=== PATIENT | female | born 1955 | race African-American/Black ===

== ENCOUNTER 2017-02-08 20:02 | Inpatient (IN) | payer OTHER ==
[~2017-02-08] VITALS: Ht 165.1 cm; Wt 101.6 kg
[~2017-02-08 20:02] MED LIST: ATEN-176 PO; DOCU-138 PO; ISOS60TA PO; OMEP20CA10 PO; TRAM50TA73 PO; ZOLP5TAB2 PO
[2017-02-08] MEDS ORDERED: SODIUM CHLORIDE 0.9% 1,000 ML IV ONE (20:44)
[2017-02-08] MEDS ORDERED: HALOPERIDOL LACTATE 5MG/ML VIAL IM ONE (22:15)
[2017-02-08] MEDS ORDERED: LORAZEPAM 2MG/ML CPJ IM STA (23:47)
[2017-02-09] MEDS ORDERED: HALOPERIDOL LACTATE 5MG/ML VIAL IM ONE
[2017-02-09 00:32] LABS: BASOPHILS % 1.1 % (0.0-2.0); EOSINOPHILS % 1.3 % (0.0-5.0); HEMATOCRIT. 43.2 % (36.0-48.0); HEMOGLOBIN. 14.5 g/dL (12.0-16.0); LYMPHOCYTES % 14.4 % (20.0-50.0); MEAN CORPUSCULAR HEMOGLOBIN 26.7 pg (28.0-32.0); MEAN CORPUSCULAR VOLUME 79.9 fL (81.0-99.0); MEAN PLATELET VOLUME 9.4 fl (7.4-10.4); MONOCYTES % 10.9 % (2.0-8.0); NEUTROPHILS % 72.3 % (40.0-76.0); PLATELET 279 x1000/uL (130-400); RED BLOOD CELL COUNT 5.41 mill/uL (4.2-5.4); RED CELL DISTRIBUTION WIDTH 18.3 % (11.6-14.6)
[2017-02-09 00:34] LABS: CHLORIDE 94 mEq/L (98-107)
[2017-02-09 00:43] LABS: CARBON DIOXIDE 32 mEq/L (21-32)
[2017-02-09 00:45] LABS: AMMONIA 14 uMol/L (<32)
[2017-02-09 00:50] LABS: CREATINE KINASE 497 IU/L (26-192); ETHANOL BLOOD < 10 mg/dL
[2017-02-09] MEDS ORDERED: LACTATED RINGERS 1,000 ML IV STA (01:03)
[2017-02-09] MEDS ORDERED: KCL 20MEQ/100ML PREMIX 100 ML IV ONE (01:15)
[2017-02-09] MEDS ORDERED: MAGNESIUM 1 G PREMIX 100 ML IV ONE (01:15)
[2017-02-09 03:13] LABS: CLARITY URINE CLOUDY (CLEAR); COLOR URINE YELLOW (YELLOW); GLUCOSE URINE NEGATIVE (NEGATIVE); KETONES URINE TRACE (NEGATIVE); LEUKOCYTE ESTERASE URINE 1+ (NEGATIVE); NITRITE URINE NEGATIVE (NEGATIVE); OCCULT BLOOD URINE 1+ (NEGATIVE); PH URINE 5.5 (4.5-8.0); PROTEIN URINE 1+ (NEGATIVE); SPECIFIC GRAVITY URINE 1.019 (1.005-1.030)
[2017-02-09 04:21] LABS: *AMPHETAMINES SCREEN URINE NEGATIVE (NEGATIVE); *BARBITURATES SCREEN URINE NEGATIVE (NEGATIVE); *BENZODIAZEPINES SCREEN URINE NEGATIVE (NEGATIVE); *COCAINE SCREEN URINE NEGATIVE (NEGATIVE); CANNABINOID URINE SCREEN NEGATIVE (NEGATIVE); METHADONE URINE SCREEN NEGATIVE (NEGATIVE); OPIATES URINE SCREEN PRESUMTIVE POSITIVE (NEGATIVE); PHENCYCLIDINE URINE SCREEN NEGATIVE (NEGATIVE)
[2017-02-09 08:00] VITALS: BP_SYST 130; BP_SYST 90; BP_DIAS 60; BP_DIAS 78
[2017-02-09] MEDS ORDERED: SODIUM CHLORIDE 0.9% 1,000 ML IV SCH (09:00)
[2017-02-09 12:00] VITALS: BP 145/78
[2017-02-09] MEDS: SODIUM CHLORIDE 0.45% 1,000 ML IV SCH ×2 (13:54→18:59)
[2017-02-09 16:00] VITALS: BP 139/82
[2017-02-09 17:00] LABS: HEMOGLOBIN. 13.8 g/dL (12.0-16.0); MEAN CORPUSCULAR HEMOGLOBIN 26.6 pg (28.0-32.0); MEAN CORPUSCULAR VOLUME 79.3 fL (81.0-99.0); MEAN PLATELET VOLUME 9.5 fl (7.4-10.4); PLATELET 216 x1000/uL (130-400); RED BLOOD CELL COUNT 5.17 mill/uL (4.2-5.4); RED CELL DISTRIBUTION WIDTH 18.4 % (11.6-14.6)
[2017-02-09 17:16] LABS: CARBON DIOXIDE 29 mEq/L (21-32); CHLORIDE 96 mEq/L (98-107)
[2017-02-09 17:57] LABS: NUCLEATED RED BLOOD CELLS 1 /100 WBC; PLATELET ESTIMATE NORMAL
[2017-02-09 20:00] VITALS: BP 143/79
[2017-02-09] MEDS ORDERED: PAMIDRONATE DISODIUM 30 MG in SODIUM CHLORIDE 0.9% 500 ML IV NR (20:00)
[2017-02-09] MEDS ORDERED: POTASSIUM CHLORIDE INJ 40 MEQ in DEXT 5% WATER 250 ML IV NR (20:00)
[2017-02-09] MEDS ORDERED: IPRATROPIUM/ALBUTEROL 0.5-3(2.5)MG/3ML NEB INH PRN (22:00)
[2017-02-09] MEDS ORDERED: ACETAMINOPHEN 325MG TABLET PO PRN (22:00)
[2017-02-09] MEDS ORDERED: ONDANSETRON HCL 4MG/2ML VIAL IV PRN (22:00)
[2017-02-09] MEDS ORDERED: GUAIFENESIN 200MG/10ML SUGAR FREE UDC PO PRN (22:00)
[2017-02-09] MEDS ORDERED: DIPHENHYDRAMINE 50MG/ML VIAL IV PRN (22:00)
[2017-02-09] MEDS ORDERED: CLONIDINE 0.1MG TABLET PO PRN (22:00)
[2017-02-09] MEDS ORDERED: MAGNESIUM/ALUMINUM HYDROXIDE/SIMETHICONE 30ML UDC PO PRN (22:00)
[2017-02-09] MEDS ORDERED: NA PHOS,M-B/NA PHOS,DI-BA ENEMA 118ML PR PRN (22:00)
[2017-02-09] MEDS ORDERED: DOCUSATE SODIUM 100MG CAPSULE PO PRN (22:00)
[2017-02-09 22:48] LABS: CARBON DIOXIDE 29 mEq/L (21-32); CHLORIDE 97 mEq/L (98-107)
[2017-02-09] MEDS: SODIUM CHLORIDE 0.9% INJ 3ML FLUSH IVF SCH (22:53)
[2017-02-10] VITALS: BP 145/86
[2017-02-10] MEDS ORDERED: CEFTRIAXONE 1 G PREMIX 50 ML IV SCH
[2017-02-10 04:00] VITALS: BP 135/82
[2017-02-10 06:46] LABS: BASOPHILS % 0.4 % (0.0-2.0); EOSINOPHILS % 0.9 % (0.0-5.0); HEMATOCRIT. 43.1 % (36.0-48.0); HEMOGLOBIN. 14.5 g/dL (12.0-16.0); LYMPHOCYTES % 11.9 % (20.0-50.0); MEAN CORPUSCULAR VOLUME 80.3 fL (81.0-99.0); MEAN PLATELET VOLUME 9.3 fl (7.4-10.4); MONOCYTES % 7.6 % (2.0-8.0); NEUTROPHILS % 79.2 % (40.0-76.0); PLATELET 237 x1000/uL (130-400); RED BLOOD CELL COUNT 5.37 mill/uL (4.2-5.4); RED CELL DISTRIBUTION WIDTH 18.1 % (11.6-14.6)
[2017-02-10] MEDS ORDERED: ATENOLOL 50 MG TABLET PO SCH (07:30)
[2017-02-10 08:00] VITALS: BP 135/84
[2017-02-10 08:53] LABS: CHLORIDE 93 mEq/L (98-107)
[2017-02-10] MEDS: DOCUSATE SODIUM 100MG CAPSULE PO SCH (08:53)
[2017-02-10] MEDS: SODIUM CHLORIDE 0.45% 1,000 ML IV SCH ×2 (08:53→15:55)
[2017-02-10] MEDS: ISOSORBIDE MONONITRATE 60MG TABLET SR 24HR PO SCH (08:54)
[2017-02-10] MEDS: ATENOLOL 25MG TABLET PO SCH (08:55)
[2017-02-10] MEDS ORDERED: ENOXAPARIN 40MG/0.4ML SYR SUBCUT SCH (09:00)
[2017-02-10 09:02] LABS: CARBON DIOXIDE 35 mEq/L (21-32); HDL CHOLESTEROL 71 mg/dL (40-59); LDL CHOLESTEROL 80 mg/dL (5-100)
[2017-02-10 12:00] VITALS: BP 110/75
[2017-02-10] MEDS: SODIUM CHLORIDE 0.9% INJ 3ML FLUSH IVF SCH ×2 (15:55→21:53)
[2017-02-10 16:00] VITALS: BP_SYST 110
[2017-02-10 20:00] VITALS: BP 120/65
[2017-02-10 20:56] LABS: CHLORIDE 97 mEq/L (98-107)
[2017-02-10 21:00] LABS: AMMONIA 25 uMol/L (<32)
[2017-02-10 21:04] LABS: CARBON DIOXIDE 30 mEq/L (21-32)
[2017-02-10] MEDS ORDERED: POTASSIUM CHLORIDE 20MEQ TABLET SR PO NR (21:15)
[2017-02-11] VITALS (20 sets, daily range): BP systolic 71–134; BP diastolic 27–82
[2017-02-11] MEDS: SODIUM CHLORIDE 0.45% 1,000 ML IV SCH ×2 (02:21→12:51)
[2017-02-11] MEDS: SODIUM CHLORIDE 0.9% INJ 3ML FLUSH IVF SCH ×3 (05:21→22:40)
[2017-02-11 07:48] LABS: PHOSPHORUS 0.7 mg/dL (2.5-4.9)
[2017-02-11] MEDS ORDERED: LORAZEPAM 2MG/ML CPJ IM PRN (09:00)
[2017-02-11] MEDS: ATENOLOL 25MG TABLET PO SCH (09:00)
[2017-02-11] MEDS ORDERED: SODIUM PHOS,M-BASIC-D-BASIC 20 MM in DEXT 5% WATER 250 ML IV SCH (09:00)
[2017-02-11] MEDS ORDERED: LORAZEPAM 2MG/ML CPJ IV PRN (09:00)
[2017-02-11] MEDS ORDERED: ENOXAPARIN 30MG/0.3ML SYR SUBCUT SCH (09:00)
[2017-02-11 09:22] LABS: BASOPHILS % 0.6 % (0.0-2.0); EOSINOPHILS % 0.7 % (0.0-5.0); HEMATOCRIT. 36.5 % (36.0-48.0); LYMPHOCYTES % 11.6 % (20.0-50.0); MEAN CORPUSCULAR HEMOGLOBIN 26.4 pg (28.0-32.0); MEAN CORPUSCULAR VOLUME 80.2 fL (81.0-99.0); MEAN PLATELET VOLUME 9.2 fl (7.4-10.4); MONOCYTES % 7.9 % (2.0-8.0); NEUTROPHILS % 79.2 % (40.0-76.0); PLATELET 202 x1000/uL (130-400); RED BLOOD CELL COUNT 4.55 mill/uL (4.2-5.4); RED CELL DISTRIBUTION WIDTH 18.2 % (11.6-14.6)
[2017-02-11] MEDS: DOCUSATE SODIUM 100MG CAPSULE PO SCH (09:22)
[2017-02-11] MEDS: ISOSORBIDE MONONITRATE 60MG TABLET SR 24HR PO SCH (09:23)
[2017-02-11] MEDS ORDERED: MAGNESIUM 2 G PREMIX 50 ML IV SCH (10:00)
[2017-02-11] MEDS ORDERED: ETOMIDATE 2MG/ML 10ML VIAL IV ONE (10:48)
[2017-02-11] MEDS ORDERED: LIDOCAINE HCL/PF 1% 2ML VIAL ONE (11:59)
[2017-02-11 16:43] LABS: BG CARBOXYHEMOGLOBIN 0.3 % (0.5-1.5); BG DEOXYHEMOGLOBIN 5.8 % (0.0-5.0); BG FRACTION INSPIRED OXYGEN 28; BG HCO3 ACT 23.5 mmol/L (22.0-26.0); BG METHEMOGLOBIN 0.4 % (0.0-1.5); BG OXYGEN SATURATION 94.2 % (92.0-98.5); BG OXYHEMOGLOBIN 93.5 % (94.0-97.0); BG PCO2 30.2 mmHg (35.0-45.0); BG PH 7.508 (7.350-7.450); BG PO2 69.8 mmHg (75.0-100.0); BG SAMPLE SITE RIGHT BRACHIAL; BG TOTAL HEMOGLOBIN 11.3 g/dL (12.0-18.0); BG VENT MODE NASAL CANNULA
[2017-02-11 17:13] LABS: AMMONIA 11 uMol/L (<32)
[2017-02-11] MEDS: GABAPENTIN 100MG CAPSULE PO SCH (17:41)
[2017-02-11] MEDS: IPRATROPIUM/ALBUTEROL 0.5-3(2.5)MG/3ML NEB HHN SCH ×2 (20:42→23:55)
[2017-02-11] MEDS ORDERED: ALBUMIN HUMAN 25GM/100ML (25%) IV NR (21:53)
[2017-02-11 22:01] LABS: BG BASE EXCESS -12.3 mmol/L (-2.0-2.0); BG CARBOXYHEMOGLOBIN 0.3 % (0.5-1.5); BG DEOXYHEMOGLOBIN 1.4 % (0.0-5.0); BG FRACTION INSPIRED OXYGEN 100; BG HCO3 ACT 10.6 mmol/L (22.0-26.0); BG METHEMOGLOBIN 0.1 % (0.0-1.5); BG OXYGEN SATURATION 98.6 % (92.0-98.5); BG OXYHEMOGLOBIN 98.2 % (94.0-97.0); BG PCO2 18.6 mmHg (35.0-45.0); BG PH 7.373 (7.350-7.450); BG PO2 170.7 mmHg (75.0-100.0); BG SAMPLE SITE LEFT RADIAL; BG TOTAL HEMOGLOBIN 12.4 g/dL (12.0-18.0); BG VENT MODE MASK - NRB
[2017-02-11] MEDS ORDERED: DEXTROSE 50% WATER 50ML SYRINGE IV PRN ×2 (22:15)
[2017-02-11] MEDS ORDERED: DEXTROSE 50% WATER 50ML SYRINGE IV NR (22:15)
[2017-02-11] MEDS: MEROPENEM 500 MG in SODIUM CHLORIDE 0.9% 50 ML IV SCH (22:45)
[2017-02-11] MEDS ORDERED: NOREPINEPHRINE 4 MG in DEXT 5% WATER 246 ML IV PRN (22:45)
[2017-02-11 22:51] LABS: HEMATOCRIT. 29.6 % (36.0-48.0); HEMOGLOBIN. 9.7 g/dL (12.0-16.0); MEAN CORPUSCULAR HEMOGLOBIN 26.3 pg (28.0-32.0); MEAN CORPUSCULAR VOLUME 80.1 fL (81.0-99.0); MEAN PLATELET VOLUME 9.3 fl (7.4-10.4); PLATELET 190 x1000/uL (130-400); RED CELL DISTRIBUTION WIDTH 18.2 % (11.6-14.6)
[2017-02-11 23:01] LABS: CARBON DIOXIDE 14 mEq/L (21-32); CHLORIDE 102 mEq/L (98-107)
[2017-02-11 23:02] LABS: D-DIMER 4.5 mg/L FEU (<0.50); INR 1.2; PARTIAL THROMBOPLASTIN TIME 29.1 sec (24.0-34.0); PROTHROMBIN TIME 12.4 sec
[2017-02-11 23:07] LABS: PHOSPHORUS 2.6 mg/dL (2.5-4.9)
[2017-02-11 23:08] LABS: PLATELET ESTIMATE NORMAL; TROPONIN I 0.09 ng/mL (0.00-0.04)
[2017-02-11] MEDS ORDERED: VANCOMYCIN 1 G PREMIX 200 ML IV SCH (23:30)
[2017-02-11] MEDS ORDERED: METHYLPREDNISOLONE SOD SUCC 125 MG/2 ML VIAL IV NR (23:40)
[2017-02-12] VITALS (97 sets, daily range): BP systolic 48–144; BP diastolic 16–77
[2017-02-12] MEDS ORDERED: DEXT 10% WATER 1,000 ML IV NR (00:30)
[2017-02-12] MEDS: SODIUM BICARBONATE 150 MEQ in DEXTROSE 5% WATER 1,000 ML IV SCH ×2 (00:30→19:20)
[2017-02-12] MEDS ORDERED: POTASSIUM CHLORIDE INJ 40 MEQ in DEXT 5% WATER 500 ML IV NR (01:00)
[2017-02-12 02:45] LABS: CREATININE URINE RANDOM 69.6 mg/dL
[2017-02-12] MEDS ORDERED: PROPOFOL 10MG/ML 100ML 100 ML IV PRN ×2 (02:45→07:30)
[2017-02-12 03:05] LABS: HEMATOCRIT 31.6 % (36.0-48.0); HEMOGLOBIN 10.3 g/dL (12.0-16.0)
[2017-02-12] MEDS: IPRATROPIUM/ALBUTEROL 0.5-3(2.5)MG/3ML NEB HHN SCH ×6 (04:09→23:53)
[2017-02-12] MEDS: SODIUM CHLORIDE 0.9% INJ 3ML FLUSH IVF SCH ×3 (05:09→21:29)
[2017-02-12] MEDS: NOREPINEPHRINE 16 MG in DEXT 5% WATER 234 ML IV PRN ×2 (05:10→19:20)
[2017-02-12 05:36] LABS: HEMATOCRIT. 27.1 % (36.0-48.0); HEMOGLOBIN. 9.2 g/dL (12.0-16.0); MEAN CORPUSCULAR HEMOGLOBIN 26.9 pg (28.0-32.0); MEAN PLATELET VOLUME 9.8 fl (7.4-10.4); PLATELET 167 x1000/uL (130-400); RED BLOOD CELL COUNT 3.43 mill/uL (4.2-5.4)
[2017-02-12] MEDS ORDERED: ALBUMIN HUMAN 25GM/100ML (25%) IV ONE (05:45)
[2017-02-12] MEDS ORDERED: SODIUM CHLORIDE 0.9% 1000ML BAG (SEPSIS BOLUS) IV ONE (05:45)
[2017-02-12 05:46] LABS: BG BASE EXCESS -5.3 mmol/L (-2.0-2.0); BG CARBOXYHEMOGLOBIN 0.3 % (0.5-1.5); BG DEOXYHEMOGLOBIN 1.4 % (0.0-5.0); BG FRACTION INSPIRED OXYGEN 60; BG HCO3 ACT 16.1 mmol/L (22.0-26.0); BG METHEMOGLOBIN 0.2 % (0.0-1.5); BG OXYGEN SATURATION 98.6 % (92.0-98.5); BG OXYHEMOGLOBIN 98.1 % (94.0-97.0); BG PH 7.503 (7.350-7.450); BG PO2 168.3 mmHg (75.0-100.0); BG SAMPLE SITE RIGHT RADIAL; BG TIDAL VOLUME(mL) 600 mL; BG TOTAL HEMOGLOBIN 10.8 g/dL (12.0-18.0); BG VENT MODE VENT - A/C; BG VENT RATE 20 set
[2017-02-12 05:58] LABS: PHOSPHORUS 1.4 mg/dL (2.5-4.9)
[2017-02-12] MEDS ORDERED: BLOOD SUGAR DIAGNOSTIC STRIP TEST SCH ×2 (06:30)
[2017-02-12] MEDS ORDERED: METRONIDAZOLE 500 MG PREMIX 100 ML IV SCH (07:00)
[2017-02-12] MEDS: BLOOD SUGAR DIAGNOSTIC STRIP TEST SCH ×4 (08:12→20:40)
[2017-02-12 08:13] LABS: NUCLEATED RED BLOOD CELLS 1 /100 WBC; PLATELET ESTIMATE NORMAL
[2017-02-12 08:54] LABS: T4 FREE 1.3 ng/dL (0.76-1.46)
[2017-02-12] MEDS ORDERED: ENOXAPARIN 40MG/0.4ML SYR SUBCUT SCH (09:00)
[2017-02-12] MEDS: DOCUSATE SODIUM 100MG CAPSULE PO SCH (09:00)
[2017-02-12] MEDS ORDERED: GABAPENTIN 100MG CAPSULE PO SCH (09:00)
[2017-02-12] MEDS: GABAPENTIN 100MG CAPSULE PO SCH ×3 (09:24→17:16)
[2017-02-12] MEDS: MEROPENEM 500 MG in SODIUM CHLORIDE 0.9% 50 ML IV SCH ×2 (09:24→21:31)
[2017-02-12] MEDS: FOLIC ACID 1MG TABLET NG SCH (09:28)
[2017-02-12] MEDS: MULTIVITAMINS,THER W-MINERALS TABLET NG SCH (09:28)
[2017-02-12] MEDS: THIAMINE HCL 100MG TABLET NG SCH (09:28)
[2017-02-12] MEDS: PANTOPRAZOLE SODIUM 40 MG/VIAL IV SCH (09:28)
[2017-02-12] MEDS ORDERED: WATER IV NR (11:00)
[2017-02-12] MEDS ORDERED: DEXT IV NR (11:00)
[2017-02-12] MEDS ORDERED: SODIUM PHOS M BASIC D BASIC IV NR (11:00)
[2017-02-12 11:25] LABS: *AMPHETAMINES SCREEN URINE NEGATIVE (NEGATIVE); *BARBITURATES SCREEN URINE NEGATIVE (NEGATIVE); *BENZODIAZEPINES SCREEN URINE NEGATIVE (NEGATIVE); *COCAINE SCREEN URINE NEGATIVE (NEGATIVE); CANNABINOID URINE SCREEN NEGATIVE (NEGATIVE); METHADONE URINE SCREEN NEGATIVE (NEGATIVE); OPIATES URINE SCREEN PRESUMTIVE POSITIVE (NEGATIVE); PHENCYCLIDINE URINE SCREEN NEGATIVE (NEGATIVE)
[2017-02-12 13:07] LABS: *CREATININE RANDOM URINE 108.5 mg/dL (Not Estab.); MICROALBUMIN RANDOM URINE 493.8 ug/mL (Not Estab.); MICROALBUMIN/CREATININE RATIO 455.1 mg/g creat (0.0-30.0)
[2017-02-12] MEDS ORDERED: VANCOMYCIN 500 MG PREMIX 100 ML IV NR (14:00)
[2017-02-12 16:49] LABS: CREATINE KINASE MB FRACTION 5.8 ng/mL (0.5-3.6); TROPONIN I 0.08 ng/mL (0.00-0.04)
[2017-02-12] MEDS: BUDESONIDE 0.5MG/2ML NEB HHN SCH (19:47)
[2017-02-12] MEDS ORDERED: SODIUM BICARBONATE 150 MEQ in SODIUM CHLORIDE 0.9% 1,000 ML IV SCH ×3 (22:30)
[2017-02-13] VITALS (94 sets, daily range): BP systolic 69–150; BP diastolic 40–91
[2017-02-13] MEDS: ACETAMINOPHEN 650MG/20.3ML UDC GT PRN ×2 (02:35→14:48)
[2017-02-13 04:04] LABS: CREATINE KINASE MB FRACTION 3.8 ng/mL (0.5-3.6); TROPONIN I 0.04 ng/mL (0.00-0.04)
[2017-02-13] MEDS: IPRATROPIUM/ALBUTEROL 0.5-3(2.5)MG/3ML NEB HHN SCH ×5 (04:09→20:37)
[2017-02-13] MEDS ORDERED: ALBUMIN HUMAN 25GM/100ML (25%) IV ONE (04:45)
[2017-02-13] MEDS: BLOOD SUGAR DIAGNOSTIC STRIP TEST SCH ×6 (04:54→20:00)
[2017-02-13 05:40] LABS: HEMATOCRIT. 27.1 % (36.0-48.0); HEMOGLOBIN. 9.4 g/dL (12.0-16.0); MEAN CORPUSCULAR HEMOGLOBIN 26.7 pg (28.0-32.0); MEAN CORPUSCULAR VOLUME 77.1 fL (81.0-99.0); PLATELET 174 x1000/uL (130-400); RED BLOOD CELL COUNT 3.51 mill/uL (4.2-5.4); RED CELL DISTRIBUTION WIDTH 18.2 % (11.6-14.6)
[2017-02-13 05:45] LABS: CARBON DIOXIDE 26 mEq/L (21-32); CHLORIDE 95 mEq/L (98-107); CREATINE KINASE 426 IU/L (26-192); CREATINE KINASE MB FRACTION 2.6 ng/mL (0.5-3.6); TROPONIN I 0.05 ng/mL (0.00-0.04)
[2017-02-13] MEDS: SODIUM CHLORIDE 0.9% INJ 3ML FLUSH IVF SCH ×3 (06:07→22:36)
[2017-02-13] MEDS: NOREPINEPHRINE 16 MG in DEXT 5% WATER 234 ML IV PRN (06:45)
[2017-02-13 07:14] LABS: PLATELET ESTIMATE NORMAL
[2017-02-13 07:40] LABS: INR 1.2; PROTHROMBIN TIME 12.6 sec
[2017-02-13] MEDS: BUDESONIDE 0.5MG/2ML NEB HHN SCH ×2 (08:10→20:38)
[2017-02-13 08:29] LABS: BG BASE EXCESS 3.3 mmol/L (-2.0-2.0); BG CARBOXYHEMOGLOBIN 0.3 % (0.5-1.5); BG DEOXYHEMOGLOBIN 7.5 % (0.0-5.0); BG FRACTION INSPIRED OXYGEN 35; BG HCO3 ACT 25.2 mmol/L (22.0-26.0); BG METHEMOGLOBIN 0.4 % (0.0-1.5); BG OXYGEN SATURATION 92.4 % (92.0-98.5); BG OXYHEMOGLOBIN 91.8 % (94.0-97.0); BG PH 7.572 (7.350-7.450); BG PO2 63.6 mmHg (75.0-100.0); BG SAMPLE SITE RIGHT RADIAL; BG TIDAL VOLUME(mL) 550 mL; BG TOTAL HEMOGLOBIN 8.1 g/dL (12.0-18.0); BG VENT MODE VENT - A/C; BG VENT RATE 14 set
[2017-02-13] MEDS ORDERED: CEFEPIME 1,000 MG in DEXTROSE 5% WATER 50 ML IV SCH (08:30)
[2017-02-13] MEDS: DOCUSATE SODIUM 100MG CAPSULE PO SCH (09:00)
[2017-02-13] MEDS: MULTIVITAMINS,THER W-MINERALS TABLET NG SCH (09:08)
[2017-02-13] MEDS: FOLIC ACID 1MG TABLET NG SCH (09:08)
[2017-02-13] MEDS: PANTOPRAZOLE SODIUM 40 MG/VIAL IV SCH (09:08)
[2017-02-13] MEDS: THIAMINE HCL 100MG TABLET NG SCH (09:08)
[2017-02-13] MEDS ORDERED: POTASSIUM CHLORIDE 20MEQ TABLET SR PO NR (09:45)
[2017-02-13] MEDS ORDERED: SODIUM BICARBONATE 4% (2.4MEQ) 5ML VIAL IV ONE (11:19)
[2017-02-13] MEDS ORDERED: LIDOCAINE HCL 1% 20ML VIAL (Pyxis) INJ ONE (11:19)
[2017-02-13] MEDS: SODIUM CHLORIDE 0.9% 1,000 ML IV SCH (13:09)
[2017-02-13] MEDS ORDERED: PROPOFOL 10MG/ML 100ML 100 ML IV PRN (14:00)
[2017-02-13] MEDS ORDERED: MICAFUNGIN 100 MG in SODIUM CHLORIDE 0.9% 100 ML IV SCH (14:15)
[2017-02-13] MEDS ORDERED: FLUCONAZOLE 800 MG/400 ML IV NR (16:00)
[2017-02-13] MEDS ORDERED: FLUCONAZOLE 400MG/200ML BAG 200 ML IV NR ×2 (16:00→18:00)
[2017-02-13] MEDS: VANCOMYCIN 500 MG PREMIX 100 ML IV SCH (17:04)
[2017-02-13] MEDS: MEROPENEM 1,000 MG in SODIUM CHLORIDE 0.9% 100 ML IV SCH (21:00)
[2017-02-13] MEDS ORDERED: SODIUM BICARBONATE 150 MEQ in SODIUM CHLORIDE 0.45% 1,000 ML IV SCH ×3 (23:00)
[2017-02-13] MEDS: PHENYLEPHRINE 40 MG in DEXT 5% WATER 246 ML IV PRN (23:05)
[2017-02-14] VITALS (98 sets, daily range): BP systolic 60–168; BP diastolic 26–114
[2017-02-14] MEDS: IPRATROPIUM/ALBUTEROL 0.5-3(2.5)MG/3ML NEB HHN SCH ×6 (00:29→20:18)
[2017-02-14] MEDS: SODIUM CHLORIDE 0.9% 1,000 ML IV SCH (01:31)
[2017-02-14] MEDS: BLOOD SUGAR DIAGNOSTIC STRIP TEST SCH ×6 (04:00→20:39)
[2017-02-14 04:42] LABS: BASOPHILS % 0.4 % (0.0-2.0); EOSINOPHILS % 0.1 % (0.0-5.0); HEMATOCRIT. 23.1 % (36.0-48.0); HEMOGLOBIN. 8.1 g/dL (12.0-16.0); LYMPHOCYTES % 18.3 % (20.0-50.0); MEAN CORPUSCULAR HEMOGLOBIN 27.1 pg (28.0-32.0); MEAN CORPUSCULAR VOLUME 77.4 fL (81.0-99.0); MEAN PLATELET VOLUME 9.6 fl (7.4-10.4); MONOCYTES % 7.2 % (2.0-8.0); PLATELET 171 x1000/uL (130-400); RED BLOOD CELL COUNT 2.98 mill/uL (4.2-5.4); RED CELL DISTRIBUTION WIDTH 18.4 % (11.6-14.6)
[2017-02-14] MEDS: SODIUM CHLORIDE 0.9% INJ 3ML FLUSH IVF SCH ×3 (06:25→22:00)
[2017-02-14] MEDS ORDERED: MORPHINE SULFATE 2 MG/ML CPJ (NOT FOR IM USE) IV PRN (07:00)
[2017-02-14] MEDS ORDERED: KCL 20MEQ/100ML PREMIX 100 ML IV ONE (07:15)
[2017-02-14] MEDS ORDERED: LACTULOSE 20G/30ML UDC PO NR (07:30)
[2017-02-14] MEDS: NOREPINEPHRINE 16 MG in DEXT 5% WATER 234 ML IV PRN ×2 (08:00→20:56)
[2017-02-14] MEDS: BUDESONIDE 0.5MG/2ML NEB HHN SCH ×2 (08:28→20:18)
[2017-02-14] MEDS: PANTOPRAZOLE SODIUM 40 MG/VIAL IV SCH (08:58)
[2017-02-14] MEDS ORDERED: POTASSIUM CHLORIDE INJ 40 MEQ in DEXT 5% WATER 250 ML IV NR (09:00)
[2017-02-14] MEDS: THIAMINE HCL 100MG TABLET NG SCH (09:01)
[2017-02-14] MEDS: FOLIC ACID 1MG TABLET NG SCH (09:01)
[2017-02-14] MEDS: MULTIVITAMINS,THER W-MINERALS TABLET NG SCH (09:01)
[2017-02-14] MEDS: FENTANYL CITRATE/PF 500 MCG in SODIUM CHLORIDE 0.9% 40 ML IV PRN ×2 (10:03→17:30)
[2017-02-14] MEDS: MEROPENEM 1,000 MG in SODIUM CHLORIDE 0.9% 100 ML IV SCH ×2 (10:03→20:49)
[2017-02-14] MEDS ORDERED: LIDOCAINE HCL 1% 20ML VIAL (Pyxis) INJ INFIL NR (12:00)
[2017-02-14] MEDS: MIDAZOLAM HCL 100 MG in DEXT 5% WATER 80 ML IV PRN ×2 (12:00→13:12)
[2017-02-14 12:06] LABS: HEMATOCRIT 24.1 % (36.0-48.0); HEMOGLOBIN 8.4 g/dL (12.0-16.0)
[2017-02-14] MEDS: PHENYLEPHRINE 40 MG in DEXT 5% WATER 246 ML IV PRN (12:30)
[2017-02-14] MEDS ORDERED: AMIODARONE HCL 900 MG in DEXT 5% WATER 500 ML IV PRN (12:30)
[2017-02-14] MEDS ORDERED: POTASSIUM PHOS,M-BASIC-D-BASIC 10 MMOL in DEXT 5% WATER 246.6667 ML IV NR (13:00)
[2017-02-14 13:26] LABS: 25-HYDROXY VITAMIN D3 6.3 ng/mL (.)
[2017-02-14] MEDS: METOCLOPRAMIDE HCL 10MG/2ML VIAL IV SCH ×2 (13:40→19:43)
[2017-02-14] MEDS: ACETAMINOPHEN 650MG SUPP PR PRN (13:41)
[2017-02-14 13:47] LABS: BG BASE EXCESS 2.6 mmol/L (-2.0-2.0); BG CARBOXYHEMOGLOBIN 0.1 % (0.5-1.5); BG DEOXYHEMOGLOBIN 1.3 % (0.0-5.0); BG FRACTION INSPIRED OXYGEN 70; BG HCO3 ACT 25.2 mmol/L (22.0-26.0); BG METHEMOGLOBIN 0.3 % (0.0-1.5); BG OXYGEN SATURATION 98.7 % (92.0-98.5); BG OXYHEMOGLOBIN 98.3 % (94.0-97.0); BG PCO2 30.6 mmHg (35.0-45.0); BG PH 7.533 (7.350-7.450); BG PO2 176.9 mmHg (75.0-100.0); BG SAMPLE SITE LEFT RADIAL; BG TIDAL VOLUME(mL) 550 mL; BG TOTAL HEMOGLOBIN 8.3 g/dL (12.0-18.0); BG VENT MODE VENT - A/C; BG VENT RATE 14 set
[2017-02-14] MEDS: FLUCONAZOLE 400MG/200ML BAG 200 ML IV SCH (16:00)
[2017-02-14] MEDS: VANCOMYCIN 500 MG PREMIX 100 ML IV SCH (16:46)
[2017-02-14 18:46] LABS: HEMATOCRIT 22.8 % (36.0-48.0); HEMOGLOBIN 7.7 g/dL (12.0-16.0)
[2017-02-14] MEDS ORDERED: LACTULOSE 20G/30ML UDC PO PRN (21:00)
[2017-02-15] VITALS (100 sets, daily range): BP systolic 81–185; BP diastolic 38–102
[2017-02-15] MEDS: IPRATROPIUM/ALBUTEROL 0.5-3(2.5)MG/3ML NEB HHN SCH ×7 (00:16→23:51)
[2017-02-15 00:44] LABS: HEMATOCRIT 23.7 % (36.0-48.0); HEMOGLOBIN 8.2 g/dL (12.0-16.0)
[2017-02-15] MEDS: SODIUM CHLORIDE 0.9% 1,000 ML IV SCH ×3 (03:00→17:18)
[2017-02-15] MEDS: BLOOD SUGAR DIAGNOSTIC STRIP TEST SCH ×6 (04:58→20:32)
[2017-02-15 05:22] LABS: HEMOGLOBIN. 7.8 g/dL (12.0-16.0); MEAN CORPUSCULAR HEMOGLOBIN 26.4 pg (28.0-32.0); MEAN CORPUSCULAR VOLUME 77.8 fL (81.0-99.0); MEAN PLATELET VOLUME 9.2 fl (7.4-10.4); PLATELET 184 x1000/uL (130-400); RED BLOOD CELL COUNT 2.96 mill/uL (4.2-5.4); RED CELL DISTRIBUTION WIDTH 18.2 % (11.6-14.6)
[2017-02-15] MEDS: SODIUM CHLORIDE 0.9% INJ 3ML FLUSH IVF SCH ×3 (05:32→21:41)
[2017-02-15] MEDS: METOCLOPRAMIDE HCL 10MG/2ML VIAL IV SCH ×4 (05:32→17:20)
[2017-02-15] MEDS: FENTANYL CITRATE/PF 500 MCG in SODIUM CHLORIDE 0.9% 40 ML IV PRN (06:06)
[2017-02-15] MEDS: MIDAZOLAM HCL 100 MG in DEXT 5% WATER 80 ML IV PRN (06:06)
[2017-02-15 06:31] LABS: PHOSPHORUS 2.6 mg/dL (2.5-4.9)
[2017-02-15] MEDS: NOREPINEPHRINE 16 MG in DEXT 5% WATER 234 ML IV PRN (07:00)
[2017-02-15 07:42] LABS: PLATELET ESTIMATE NORMAL
[2017-02-15 07:53] LABS: BG BASE EXCESS 1.6 mmol/L (-2.0-2.0); BG CARBOXYHEMOGLOBIN 0.3 % (0.5-1.5); BG DEOXYHEMOGLOBIN 1.7 % (0.0-5.0); BG FRACTION INSPIRED OXYGEN 50; BG HCO3 ACT 24.6 mmol/L (22.0-26.0); BG METHEMOGLOBIN 0.3 % (0.0-1.5); BG OXYGEN SATURATION 98.3 % (92.0-98.5); BG OXYHEMOGLOBIN 97.7 % (94.0-97.0); BG PCO2 32.9 mmHg (35.0-45.0); BG PH 7.491 (7.350-7.450); BG PO2 137.3 mmHg (75.0-100.0); BG SAMPLE SITE RIGHT RADIAL; BG TIDAL VOLUME(mL) 550 mL; BG TOTAL HEMOGLOBIN 10.4 g/dL (12.0-18.0); BG VENT MODE VENT - A/C; BG VENT RATE 14 set
[2017-02-15] MEDS: BUDESONIDE 0.5MG/2ML NEB HHN SCH (07:55)
[2017-02-15] MEDS: MEROPENEM 1,000 MG in SODIUM CHLORIDE 0.9% 100 ML IV SCH ×2 (08:59→20:35)
[2017-02-15] MEDS: PANTOPRAZOLE SODIUM 40 MG/VIAL IV SCH (08:59)
[2017-02-15] MEDS: MULTIVITAMINS,THER W-MINERALS TABLET NG SCH (08:59)
[2017-02-15] MEDS: THIAMINE HCL 100MG TABLET NG SCH (08:59)
[2017-02-15] MEDS: FOLIC ACID 1MG TABLET NG SCH (08:59)
[2017-02-15] MEDS ORDERED: POTASSIUM CHLORIDE INJ 40 MEQ in DEXT 5% WATER 250 ML IV NR (10:00)
[2017-02-15] MEDS: VANCOMYCIN 750 MG PREMIX 150 ML IV SCH (14:14)
[2017-02-15 16:05] LABS: HEMATOCRIT 26.3 % (36.0-48.0); HEMOGLOBIN 8.9 g/dL (12.0-16.0)
[2017-02-15] MEDS: FLUCONAZOLE 400MG/200ML BAG 200 ML IV SCH (16:13)
[2017-02-15 18:13] LABS: HEMATOCRIT 25.3 % (36.0-48.0); HEMOGLOBIN 8.9 g/dL (12.0-16.0)
[2017-02-16] VITALS (97 sets, daily range): BP systolic 88–132; BP diastolic 45–100
[2017-02-16 01:03] LABS: HEMATOCRIT 23.6 % (36.0-48.0)
[2017-02-16] MEDS: METOCLOPRAMIDE HCL 10MG/2ML VIAL IV SCH ×4 (01:14→18:29)
[2017-02-16] MEDS: BLOOD SUGAR DIAGNOSTIC STRIP TEST SCH ×5 (04:00→20:17)
[2017-02-16] MEDS: IPRATROPIUM/ALBUTEROL 0.5-3(2.5)MG/3ML NEB HHN SCH ×5 (04:02→20:19)
[2017-02-16 04:48] LABS: HEMOGLOBIN. 8.3 g/dL (12.0-16.0); MEAN CORPUSCULAR HEMOGLOBIN 27.2 pg (28.0-32.0); MEAN CORPUSCULAR VOLUME 78.8 fL (81.0-99.0); MEAN PLATELET VOLUME 9.2 fl (7.4-10.4); PLATELET 201 x1000/uL (130-400); RED BLOOD CELL COUNT 3.04 mill/uL (4.2-5.4); RED CELL DISTRIBUTION WIDTH 18.6 % (11.6-14.6)
[2017-02-16] MEDS: SODIUM CHLORIDE 0.9% INJ 3ML FLUSH IVF SCH ×3 (05:07→21:04)
[2017-02-16 05:16] LABS: CARBON DIOXIDE 25 mEq/L (21-32); CHLORIDE 113 mEq/L (98-107); PHOSPHORUS 1.2 mg/dL (2.5-4.9)
[2017-02-16] MEDS: SODIUM CHLORIDE 0.9% 1,000 ML IV SCH ×2 (06:40→21:34)
[2017-02-16] MEDS: NOREPINEPHRINE 16 MG in DEXT 5% WATER 234 ML IV PRN (06:49)
[2017-02-16 07:06] LABS: PLATELET ESTIMATE NORMAL
[2017-02-16 07:49] LABS: BG BASE EXCESS 0.3 mmol/L (-2.0-2.0); BG CARBOXYHEMOGLOBIN 0.3 % (0.5-1.5); BG DEOXYHEMOGLOBIN 2.7 % (0.0-5.0); BG FRACTION INSPIRED OXYGEN 40; BG HCO3 ACT 23.1 mmol/L (22.0-26.0); BG METHEMOGLOBIN 0.6 % (0.0-1.5); BG OXYGEN SATURATION 97.3 % (92.0-98.5); BG OXYHEMOGLOBIN 96.4 % (94.0-97.0); BG PCO2 29.7 mmHg (35.0-45.0); BG PH 7.508 (7.350-7.450); BG PO2 100.8 mmHg (75.0-100.0); BG SAMPLE SITE RIGHT RADIAL; BG TIDAL VOLUME(mL) 550 mL; BG TOTAL HEMOGLOBIN 7.9 g/dL (12.0-18.0); BG VENT MODE VENT - A/C; BG VENT RATE 12 set
[2017-02-16] MEDS: PANTOPRAZOLE SODIUM 40 MG/VIAL IV SCH (09:36)
[2017-02-16] MEDS: ACETAMINOPHEN 650MG/20.3ML UDC GT PRN ×2 (09:36→19:59)
[2017-02-16] MEDS: FOLIC ACID 1MG TABLET NG SCH (09:36)
[2017-02-16] MEDS: MULTIVITAMINS,THER W-MINERALS TABLET NG SCH (09:36)
[2017-02-16] MEDS: THIAMINE HCL 100MG TABLET NG SCH (09:36)
[2017-02-16] MEDS: MEROPENEM 1,000 MG in SODIUM CHLORIDE 0.9% 100 ML IV SCH ×3 (09:39→21:03)
[2017-02-16] MEDS: VANCOMYCIN 750 MG PREMIX 150 ML IV SCH (11:18)
[2017-02-16] MEDS ORDERED: FLUCONAZOLE 800 MG/400 ML IV SCH (12:45)
[2017-02-16 12:54] LABS: HEMATOCRIT 23.9 % (36.0-48.0); HEMOGLOBIN 8.3 g/dL (12.0-16.0)
[2017-02-16] MEDS ORDERED: DEXTROSE 50% WATER 50ML SYRINGE IV PRN (13:30)
[2017-02-16] MEDS ORDERED: MAGNESIUM 2 G PREMIX 50 ML IV NR (14:00)
[2017-02-16] MEDS ORDERED: FLUCONAZOLE 400MG/200ML BAG 200 ML IV SCH ×2 (14:00→16:00)
[2017-02-16] MEDS ORDERED: POTASSIUM PHOS,M-BASIC-D-BASIC 20 MMOL in DEXT 5% WATER 243.3333 ML IV SCH (15:00)
[2017-02-16] MEDS: FENTANYL CITRATE/PF 500 MCG in SODIUM CHLORIDE 0.9% 40 ML IV PRN (15:01)
[2017-02-16] MEDS: MIDAZOLAM HCL 100 MG in DEXT 5% WATER 80 ML IV PRN (16:34)
[2017-02-16] MEDS: INSULIN LISPRO 100 UNITS/ML SUBCUT SCH ×2 (17:00→21:03)
[2017-02-16 18:24] LABS: HEMATOCRIT 22.9 % (36.0-48.0); HEMOGLOBIN 7.8 g/dL (12.0-16.0)
[2017-02-17] VITALS (101 sets, daily range): BP systolic 87–132; BP diastolic 45–86
[2017-02-17] MEDS: IPRATROPIUM/ALBUTEROL 0.5-3(2.5)MG/3ML NEB HHN SCH ×6 (00:05→20:32)
[2017-02-17] MEDS: METOCLOPRAMIDE HCL 10MG/2ML VIAL IV SCH ×4 (00:17→18:31)
[2017-02-17] MEDS: SODIUM CHLORIDE 0.9% INJ 3ML FLUSH IVF SCH ×3 (05:06→21:05)
[2017-02-17] MEDS: MEROPENEM 1,000 MG in SODIUM CHLORIDE 0.9% 100 ML IV SCH ×3 (05:09→21:51)
[2017-02-17] MEDS: NOREPINEPHRINE 16 MG in DEXT 5% WATER 234 ML IV PRN (05:11)
[2017-02-17 05:35] LABS: HEMATOCRIT. 24.8 % (36.0-48.0); HEMOGLOBIN. 8.4 g/dL (12.0-16.0); MEAN CORPUSCULAR HEMOGLOBIN 27.4 pg (28.0-32.0); MEAN CORPUSCULAR VOLUME 80.5 fL (81.0-99.0); MEAN PLATELET VOLUME 9.2 fl (7.4-10.4); PLATELET 233 x1000/uL (130-400); RED BLOOD CELL COUNT 3.08 mill/uL (4.2-5.4); RED CELL DISTRIBUTION WIDTH 18.6 % (11.6-14.6)
[2017-02-17] MEDS: BLOOD SUGAR DIAGNOSTIC STRIP TEST SCH ×4 (05:38→21:05)
[2017-02-17 06:01] LABS: CARBON DIOXIDE 24 mEq/L (21-32); CHLORIDE 113 mEq/L (98-107); PHOSPHORUS 2.2 mg/dL (2.5-4.9)
[2017-02-17] MEDS: INSULIN LISPRO 100 UNITS/ML SUBCUT SCH ×4 (06:27→21:00)
[2017-02-17 07:58] LABS: PLATELET ESTIMATE NORMAL
[2017-02-17 08:13] LABS: BG BASE EXCESS -1.1 mmol/L (-2.0-2.0); BG CARBOXYHEMOGLOBIN 0.3 % (0.5-1.5); BG DEOXYHEMOGLOBIN 1.9 % (0.0-5.0); BG FRACTION INSPIRED OXYGEN 40; BG HCO3 ACT 21.3 mmol/L (22.0-26.0); BG METHEMOGLOBIN 0.2 % (0.0-1.5); BG OXYGEN SATURATION 98.1 % (92.0-98.5); BG OXYHEMOGLOBIN 97.6 % (94.0-97.0); BG PCO2 27.1 mmHg (35.0-45.0); BG PH 7.513 (7.350-7.450); BG PO2 119.6 mmHg (75.0-100.0); BG SAMPLE SITE RIGHT RADIAL; BG TIDAL VOLUME(mL) 550 mL; BG TOTAL HEMOGLOBIN 8.7 g/dL (12.0-18.0); BG VENT MODE VENT - A/C; BG VENT RATE 12 set
[2017-02-17] MEDS: MULTIVITAMINS,THER W-MINERALS TABLET NG SCH (10:09)
[2017-02-17] MEDS: THIAMINE HCL 100MG TABLET NG SCH (10:09)
[2017-02-17] MEDS: PANTOPRAZOLE SODIUM 40 MG/VIAL IV SCH (10:09)
[2017-02-17] MEDS: FOLIC ACID 1MG TABLET NG SCH (10:09)
[2017-02-17] MEDS: LINEZOLID 600 MG PREMIX 300 ML IV SCH ×2 (10:25→23:07)
[2017-02-17] MEDS: SODIUM CHLORIDE 0.9% 1,000 ML IV SCH (10:29)
[2017-02-17 12:09] LABS: HEMATOCRIT 23.1 % (36.0-48.0); HEMOGLOBIN 7.9 g/dL (12.0-16.0)
[2017-02-17] MEDS: MICAFUNGIN 100 MG in SODIUM CHLORIDE 0.9% 100 ML IV SCH (12:42)
[2017-02-17] MEDS: CALCITRIOL 0.25MCG CAPSULE PO SCH (13:48)
[2017-02-17] MEDS ORDERED: MAGNESIUM 2 G PREMIX 50 ML IV NR (14:00)
[2017-02-17] MEDS ORDERED: POTASSIUM PHOS,M-BASIC-D-BASIC 20 MMOL in DEXT 5% WATER 243.3333 ML IV NR (14:00)
[2017-02-17] MEDS: ACETAMINOPHEN 650MG/20.3ML UDC GT PRN ×2 (15:03→22:23)
[2017-02-17] MEDS: FENTANYL CITRATE/PF 500 MCG in SODIUM CHLORIDE 0.9% 40 ML IV PRN (18:32)
[2017-02-18] VITALS (95 sets, daily range): BP systolic 79–129; BP diastolic 43–80
[2017-02-18 00:16] LABS: HEMATOCRIT 27.1 % (36.0-48.0); HEMOGLOBIN 9.1 g/dL (12.0-16.0)
[2017-02-18] MEDS: IPRATROPIUM/ALBUTEROL 0.5-3(2.5)MG/3ML NEB HHN SCH ×7 (00:16→23:51)
[2017-02-18] MEDS: METOCLOPRAMIDE HCL 10MG/2ML VIAL IV SCH ×4 (00:27→18:11)
[2017-02-18] MEDS: NOREPINEPHRINE 16 MG in DEXT 5% WATER 234 ML IV PRN (00:58)
[2017-02-18 04:53] LABS: HEMATOCRIT. 27.9 % (36.0-48.0); HEMOGLOBIN. 9.5 g/dL (12.0-16.0); MEAN CORPUSCULAR HEMOGLOBIN 27.1 pg (28.0-32.0); MEAN CORPUSCULAR VOLUME 79.8 fL (81.0-99.0); MEAN PLATELET VOLUME 9.2 fl (7.4-10.4); PLATELET 264 x1000/uL (130-400); RED BLOOD CELL COUNT 3.49 mill/uL (4.2-5.4); RED CELL DISTRIBUTION WIDTH 17.5 % (11.6-14.6)
[2017-02-18] MEDS: SODIUM CHLORIDE 0.9% INJ 3ML FLUSH IVF SCH ×3 (05:15→21:34)
[2017-02-18] MEDS: MEROPENEM 1,000 MG in SODIUM CHLORIDE 0.9% 100 ML IV SCH ×3 (05:17→23:09)
[2017-02-18 05:20] LABS: CARBON DIOXIDE 22 mEq/L (21-32); CHLORIDE 113 mEq/L (98-107); PHOSPHORUS 1.9 mg/dL (2.5-4.9)
[2017-02-18] MEDS: BLOOD SUGAR DIAGNOSTIC STRIP TEST SCH ×3 (05:39→18:08)
[2017-02-18] MEDS: INSULIN LISPRO 100 UNITS/ML SUBCUT SCH ×3 (05:59→18:00)
[2017-02-18] MEDS: MIDAZOLAM HCL 100 MG in DEXT 5% WATER 80 ML IV PRN (06:05)
[2017-02-18 07:11] LABS: BG BASE EXCESS -2.4 mmol/L (-2.0-2.0); BG CARBOXYHEMOGLOBIN 0.2 % (0.5-1.5); BG DEOXYHEMOGLOBIN 2.3 % (0.0-5.0); BG METHEMOGLOBIN 0.3 % (0.0-1.5); BG OXYGEN SATURATION 97.7 % (92.0-98.5); BG OXYHEMOGLOBIN 97.2 % (94.0-97.0); BG PCO2 26.7 mmHg (35.0-45.0); BG PH 7.493 (7.350-7.450); BG PO2 106.1 mmHg (75.0-100.0); BG SAMPLE SITE RIGHT RADIAL; BG TIDAL VOLUME(mL) 550 mL; BG TOTAL HEMOGLOBIN 9.8 g/dL (12.0-18.0); BG VENT MODE VENT - A/C; BG VENT RATE 12 set
[2017-02-18 08:07] LABS: HEPATITIS B SURFACE ANTIGEN REACTIVE PEND CONFIR
[2017-02-18] MEDS: PANTOPRAZOLE SODIUM 40 MG/VIAL IV SCH ×2 (08:32→20:23)
[2017-02-18] MEDS: FOLIC ACID 1MG TABLET NG SCH (08:33)
[2017-02-18] MEDS: CALCITRIOL 0.25MCG CAPSULE PO SCH (08:33)
[2017-02-18] MEDS: MULTIVITAMINS,THER W-MINERALS TABLET NG SCH (08:33)
[2017-02-18] MEDS: THIAMINE HCL 100MG TABLET NG SCH (08:33)
[2017-02-18] MEDS: LINEZOLID 600 MG PREMIX 300 ML IV SCH ×2 (10:26→23:09)
[2017-02-18] MEDS ORDERED: MAGNESIUM SULFATE 3 GM in DEXT 5% WATER 96 ML IV NR (11:00)
[2017-02-18] MEDS ORDERED: POTASSIUM PHOS,M-BASIC-D-BASIC 15 MMOL in DEXT 5% WATER 245 ML IV NR (11:00)
[2017-02-18] MEDS: MICAFUNGIN 100 MG in SODIUM CHLORIDE 0.9% 100 ML IV SCH (11:25)
[2017-02-18 11:50] LABS: AMMONIA < 10 uMol/L (<32)
[2017-02-18] MEDS: FENTANYL CITRATE/PF 500 MCG in SODIUM CHLORIDE 0.9% 40 ML IV PRN (12:01)
[2017-02-18] MEDS: SODIUM CHLORIDE 0.9% 1,000 ML IV SCH (12:01)
[2017-02-18] MEDS: CALCITRIOL 1MCG/ML AMP IV SCH (12:04)
[2017-02-18 15:46] LABS: ATYPICAL LYMPHOCYTES 1; NUCLEATED RED BLOOD CELLS 2 /100 WBC
[2017-02-18 15:47] LABS: PLATELET ESTIMATE NORMAL
[2017-02-18] MEDS: ACETAMINOPHEN 650MG/20.3ML UDC GT PRN (23:31)
[2017-02-19] VITALS (100 sets, daily range): BP systolic 83–152; BP diastolic 31–81
[2017-02-19] MEDS: INSULIN LISPRO 100 UNITS/ML SUBCUT SCH ×4 (00:38→18:34)
[2017-02-19] MEDS: BLOOD SUGAR DIAGNOSTIC STRIP TEST SCH ×4 (00:38→18:31)
[2017-02-19] MEDS: METOCLOPRAMIDE HCL 10MG/2ML VIAL IV SCH ×4 (00:52→18:34)
[2017-02-19] MEDS: IPRATROPIUM/ALBUTEROL 0.5-3(2.5)MG/3ML NEB HHN SCH ×5 (04:05→20:23)
[2017-02-19 06:11] LABS: EOSINOPHILS % 1.6 % (0.0-5.0); HEMATOCRIT. 25.8 % (36.0-48.0); HEMOGLOBIN. 8.8 g/dL (12.0-16.0); LYMPHOCYTES % 7.2 % (20.0-50.0); MEAN CORPUSCULAR HEMOGLOBIN 27.4 pg (28.0-32.0); MEAN CORPUSCULAR VOLUME 80.3 fL (81.0-99.0); MEAN PLATELET VOLUME 10.2 fl (7.4-10.4); MONOCYTES % 3.9 % (2.0-8.0); NEUTROPHILS % 86.3 % (40.0-76.0); PLATELET 229 x1000/uL (130-400); RED BLOOD CELL COUNT 3.21 mill/uL (4.2-5.4); RED CELL DISTRIBUTION WIDTH 18.2 % (11.6-14.6)
[2017-02-19] MEDS: SODIUM CHLORIDE 0.9% INJ 3ML FLUSH IVF SCH ×3 (06:43→21:13)
[2017-02-19] MEDS: MEROPENEM 1,000 MG in SODIUM CHLORIDE 0.9% 100 ML IV SCH ×3 (06:45→21:02)
[2017-02-19 06:48] LABS: CHLORIDE 112 mEq/L (98-107)
[2017-02-19 07:10] LABS: CARBON DIOXIDE 19 mEq/L (21-32); PHOSPHORUS 2.1 mg/dL (2.5-4.9); PREALBUMIN < 3.0 mg/dL (20.0-40.0)
[2017-02-19 07:53] LABS: BG BASE EXCESS -2.8 mmol/L (-2.0-2.0); BG CARBOXYHEMOGLOBIN 0.3 % (0.5-1.5); BG DEOXYHEMOGLOBIN 2.8 % (0.0-5.0); BG FRACTION INSPIRED OXYGEN 40; BG METHEMOGLOBIN 0.5 % (0.0-1.5); BG OXYGEN SATURATION 97.2 % (92.0-98.5); BG OXYHEMOGLOBIN 96.4 % (94.0-97.0); BG PCO2 23.7 mmHg (35.0-45.0); BG PH 7.523 (7.350-7.450); BG PO2 100.7 mmHg (75.0-100.0); BG SAMPLE SITE RIGHT RADIAL; BG TIDAL VOLUME(mL) 550 mL; BG VENT MODE VENT - A/C; BG VENT RATE 12 set
[2017-02-19] MEDS: SODIUM CHLORIDE 0.9% 1,000 ML IV SCH ×2 (08:28→14:40)
[2017-02-19] MEDS: THIAMINE HCL 100MG TABLET NG SCH (08:36)
[2017-02-19] MEDS: PANTOPRAZOLE SODIUM 40 MG/VIAL IV SCH ×2 (08:36→21:02)
[2017-02-19] MEDS: FOLIC ACID 1MG TABLET NG SCH (08:36)
[2017-02-19] MEDS: MULTIVITAMINS,THER W-MINERALS TABLET NG SCH (08:36)
[2017-02-19] MEDS: LINEZOLID 600 MG PREMIX 300 ML IV SCH ×2 (09:48→21:02)
[2017-02-19] MEDS: FENTANYL CITRATE/PF 500 MCG in SODIUM CHLORIDE 0.9% 40 ML IV PRN (09:58)
[2017-02-19] MEDS ORDERED: POTASSIUM PHOS,M-BASIC-D-BASIC 30 MMOL in DEXT 5% WATER 500 ML IV NR (10:30)
[2017-02-19] MEDS: MICAFUNGIN 100 MG in SODIUM CHLORIDE 0.9% 100 ML IV SCH (12:22)
[2017-02-20] VITALS (100 sets, daily range): BP systolic 65–157; BP diastolic 34–98
[2017-02-20] MEDS: METOCLOPRAMIDE HCL 10MG/2ML VIAL IV SCH ×4 (01:07→18:21)
[2017-02-20] MEDS: INSULIN LISPRO 100 UNITS/ML SUBCUT SCH ×4 (01:08→18:00)
[2017-02-20] MEDS: SODIUM CHLORIDE 0.9% 1,000 ML IV SCH ×2 (04:00→18:21)
[2017-02-20] MEDS: IPRATROPIUM/ALBUTEROL 0.5-3(2.5)MG/3ML NEB HHN SCH ×7 (04:27→23:50)
[2017-02-20] MEDS: NOREPINEPHRINE 16 MG in DEXT 5% WATER 234 ML IV PRN (04:30)
[2017-02-20] MEDS: MIDAZOLAM HCL 50 MG in DEXTROSE 5% WATER 40 ML IV PRN ×3 (04:31→21:21)
[2017-02-20] MEDS: FENTANYL CITRATE/PF 500 MCG in SODIUM CHLORIDE 0.9% 40 ML IV PRN ×2 (04:32→16:41)
[2017-02-20 05:15] LABS: BASOPHILS % 0.9 % (0.0-2.0); EOSINOPHILS % 1.4 % (0.0-5.0); HEMATOCRIT. 23.9 % (36.0-48.0); HEMOGLOBIN. 8.1 g/dL (12.0-16.0); LYMPHOCYTES % 10.4 % (20.0-50.0); MEAN CORPUSCULAR HEMOGLOBIN 27.4 pg (28.0-32.0); MEAN CORPUSCULAR VOLUME 80.4 fL (81.0-99.0); MEAN PLATELET VOLUME 9.5 fl (7.4-10.4); MONOCYTES % 4.3 % (2.0-8.0); PLATELET 323 x1000/uL (130-400); RED BLOOD CELL COUNT 2.97 mill/uL (4.2-5.4); RED CELL DISTRIBUTION WIDTH 18.8 % (11.6-14.6)
[2017-02-20 05:20] LABS: CHLORIDE 109 mEq/L (98-107)
[2017-02-20] MEDS: SODIUM CHLORIDE 0.9% INJ 3ML FLUSH IVF SCH ×3 (05:29→22:04)
[2017-02-20] MEDS: BLOOD SUGAR DIAGNOSTIC STRIP TEST SCH ×5 (05:29→23:47)
[2017-02-20] MEDS: MEROPENEM 1,000 MG in SODIUM CHLORIDE 0.9% 100 ML IV SCH ×3 (05:33→21:31)
[2017-02-20 05:36] LABS: CARBON DIOXIDE 21 mEq/L (21-32); PHOSPHORUS 2.4 mg/dL (2.5-4.9)
[2017-02-20] MEDS ORDERED: SIMETHICONE 40 MG/0.6 ML 30ML ONE (06:44)
[2017-02-20] MEDS ORDERED: SODIUM CHLORIDE 0.9% 10ML VIAL ONE (06:44)
[2017-02-20 07:19] LABS: BG BASE EXCESS -3.4 mmol/L (-2.0-2.0); BG CARBOXYHEMOGLOBIN 0.2 % (0.5-1.5); BG DEOXYHEMOGLOBIN 2.6 % (0.0-5.0); BG HCO3 ACT 19.1 mmol/L (22.0-26.0); BG METHEMOGLOBIN 0.2 % (0.0-1.5); BG OXYGEN SATURATION 97.4 % (92.0-98.5); BG PCO2 25.9 mmHg (35.0-45.0); BG PH 7.485 (7.350-7.450); BG PO2 105.3 mmHg (75.0-100.0); BG SAMPLE SITE RIGHT RADIAL; BG TIDAL VOLUME(mL) 550 mL; BG TOTAL HEMOGLOBIN 9.6 g/dL (12.0-18.0); BG VENT MODE VENT - A/C; BG VENT RATE 12 set
[2017-02-20] MEDS ORDERED: SODIUM CHLORIDE 0.9% 500 ML IV SCH (08:30)
[2017-02-20] MEDS: PANTOPRAZOLE SODIUM 40 MG/VIAL IV SCH ×3 (08:44→22:08)
[2017-02-20] MEDS: MULTIVITAMINS,THER W-MINERALS TABLET NG SCH ×2 (08:44→08:58)
[2017-02-20] MEDS: FOLIC ACID 1MG TABLET NG SCH ×2 (08:44→08:57)
[2017-02-20] MEDS: THIAMINE HCL 100MG TABLET NG SCH ×2 (08:44→08:58)
[2017-02-20] MEDS: CALCITRIOL 1MCG/ML AMP IV SCH (08:47)
[2017-02-20] MEDS: LINEZOLID 600 MG PREMIX 300 ML IV SCH ×2 (10:18→22:10)
[2017-02-20] MEDS ORDERED: MAGNESIUM 4 G PREMIX 100 ML IV SCH (12:30)
[2017-02-20] MEDS ORDERED: POTASSIUM PHOS,M-BASIC-D-BASIC 20 MMOL in DEXT 5% WATER 250 ML IV SCH (12:30)
[2017-02-20] MEDS: MICAFUNGIN 100 MG in SODIUM CHLORIDE 0.9% 100 ML IV SCH (12:30)
[2017-02-20] MEDS: ACETAMINOPHEN 650MG SUPP PR PRN ×2 (12:41→22:10)
[2017-02-20] MEDS ORDERED: MIDAZOLAM HCL 5 MG/5 ML VIAL ONE (15:50)
[2017-02-20] MEDS ORDERED: FENTANYL CITRATE/PF 50MCG/ML 2ML VIAL ONE (15:50)
[2017-02-20] MEDS: TOTAL PARENTERAL NUTRITION 1,000 ML IV SCH (22:09)
[2017-02-21] VITALS (96 sets, daily range): BP systolic 64–146; BP diastolic 24–82
[2017-02-21] MEDS: INSULIN LISPRO (HIGH DOSE) 100 UNITS/ML SUBCUT SCH ×4 (00:06→17:51)
[2017-02-21] MEDS: METOCLOPRAMIDE HCL 10MG/2ML VIAL IV SCH ×4 (00:06→17:54)
[2017-02-21] MEDS: IPRATROPIUM/ALBUTEROL 0.5-3(2.5)MG/3ML NEB HHN SCH ×6 (04:08→23:55)
[2017-02-21] MEDS: FENTANYL CITRATE/PF 500 MCG in SODIUM CHLORIDE 0.9% 40 ML IV PRN ×4 (04:13→22:23)
[2017-02-21 04:40] LABS: BASOPHILS % 1.3 % (0.0-2.0); EOSINOPHILS % 2.7 % (0.0-5.0); HEMOGLOBIN. 8.1 g/dL (12.0-16.0); LYMPHOCYTES % 9.5 % (20.0-50.0); MEAN CORPUSCULAR HEMOGLOBIN 27.3 pg (28.0-32.0); MEAN CORPUSCULAR VOLUME 80.8 fL (81.0-99.0); MONOCYTES % 6.1 % (2.0-8.0); NEUTROPHILS % 80.4 % (40.0-76.0); PLATELET 340 x1000/uL (130-400); RED BLOOD CELL COUNT 2.97 mill/uL (4.2-5.4); RED CELL DISTRIBUTION WIDTH 19.2 % (11.6-14.6)
[2017-02-21 05:07] LABS: CARBON DIOXIDE 23 mEq/L (21-32); CHLORIDE 111 mEq/L (98-107); PHOSPHORUS 2.5 mg/dL (2.5-4.9)
[2017-02-21] MEDS: BLOOD SUGAR DIAGNOSTIC STRIP TEST SCH ×3 (06:02→17:51)
[2017-02-21] MEDS: SODIUM CHLORIDE 0.9% INJ 3ML FLUSH IVF SCH ×3 (06:02→21:05)
[2017-02-21] MEDS: MEROPENEM 1,000 MG in SODIUM CHLORIDE 0.9% 100 ML IV SCH ×3 (06:14→21:03)
[2017-02-21] MEDS: MIDAZOLAM HCL 50 MG in DEXTROSE 5% WATER 40 ML IV PRN (06:45)
[2017-02-21 07:44] LABS: BG BASE EXCESS -3.7 mmol/L (-2.0-2.0); BG CARBOXYHEMOGLOBIN 0.5 % (0.5-1.5); BG FRACTION INSPIRED OXYGEN 40; BG HCO3 ACT 19.8 mmol/L (22.0-26.0); BG METHEMOGLOBIN 0.2 % (0.0-1.5); BG OXYHEMOGLOBIN 94.3 % (94.0-97.0); BG PH 7.438 (7.350-7.450); BG PO2 82.1 mmHg (75.0-100.0); BG SAMPLE SITE RIGHT RADIAL; BG TIDAL VOLUME(mL) 550 mL; BG TOTAL HEMOGLOBIN 8.2 g/dL (12.0-18.0); BG VENT MODE VENT - A/C; BG VENT RATE 12 set
[2017-02-21] MEDS ORDERED: FAT EMULSIONS 500 ML IV SCH (09:00)
[2017-02-21] MEDS: MULTIVITAMINS,THER W-MINERALS TABLET NG SCH (09:00)
[2017-02-21] MEDS: THIAMINE HCL 100MG TABLET NG SCH (09:00)
[2017-02-21] MEDS: FOLIC ACID 1MG TABLET NG SCH (09:00)
[2017-02-21] MEDS: NOREPINEPHRINE 16 MG in DEXT 5% WATER 234 ML IV PRN (09:09)
[2017-02-21] MEDS: PANTOPRAZOLE SODIUM 40 MG/VIAL IV SCH ×2 (09:09→21:02)
[2017-02-21] MEDS: LINEZOLID 600 MG PREMIX 300 ML IV SCH ×2 (09:12→21:04)
[2017-02-21] MEDS ORDERED: TOTAL PARENTERAL NUTRITION 1,000 ML IV SCH (09:30)
[2017-02-21 10:09] LABS: HBSAG CONFIRMATION Positive (.); HBSAG SCREEN Confirm. indicated (Negative)
[2017-02-21] MEDS: TOTAL PARENTERAL NUTRITION 1,000 ML IV SCH ×2 (10:20→21:02)
[2017-02-21] MEDS: MICAFUNGIN 100 MG in SODIUM CHLORIDE 0.9% 100 ML IV SCH (12:04)
[2017-02-22] VITALS (95 sets, daily range): BP systolic 52–151; BP diastolic 27–97
[2017-02-22] MEDS: METOCLOPRAMIDE HCL 10MG/2ML VIAL IV SCH ×4 (00:05→17:18)
[2017-02-22] MEDS: INSULIN LISPRO (HIGH DOSE) 100 UNITS/ML SUBCUT SCH ×4 (00:06→17:18)
[2017-02-22] MEDS: IPRATROPIUM/ALBUTEROL 0.5-3(2.5)MG/3ML NEB HHN SCH ×5 (04:30→20:15)
[2017-02-22] MEDS: MEROPENEM 1,000 MG in SODIUM CHLORIDE 0.9% 100 ML IV SCH ×3 (05:11→22:07)
[2017-02-22 05:30] LABS: CARBON DIOXIDE 22 mEq/L (21-32); CHLORIDE 108 mEq/L (98-107)
[2017-02-22 05:33] LABS: PHOSPHORUS 1.9 mg/dL (2.5-4.9)
[2017-02-22] MEDS: SODIUM CHLORIDE 0.9% INJ 3ML FLUSH IVF SCH ×3 (05:52→22:00)
[2017-02-22] MEDS: FENTANYL CITRATE/PF 500 MCG in SODIUM CHLORIDE 0.9% 40 ML IV PRN ×3 (06:06→19:01)
[2017-02-22] MEDS: BLOOD SUGAR DIAGNOSTIC STRIP TEST SCH ×4 (06:13→17:18)
[2017-02-22 07:17] LABS: BG BASE EXCESS 0.9 mmol/L (-2.0-2.0); BG CARBOXYHEMOGLOBIN 0.9 % (0.5-1.5); BG DEOXYHEMOGLOBIN 2.2 % (0.0-5.0); BG METHEMOGLOBIN 0.3 % (0.0-1.5); BG OXYGEN SATURATION 97.8 % (92.0-98.5); BG OXYHEMOGLOBIN 96.6 % (94.0-97.0); BG PCO2 31.5 mmHg (35.0-45.0); BG PO2 102.9 mmHg (75.0-100.0); BG SAMPLE SITE RIGHT RADIAL; BG TIDAL VOLUME(mL) 550 mL; BG VENT MODE VENT - A/C; BG VENT RATE 12 set
[2017-02-22 07:44] LABS: BASOPHILS % 1.5 % (0.0-2.0); EOSINOPHILS % 4.7 % (0.0-5.0); HEMATOCRIT. 21.4 % (36.0-48.0); HEMOGLOBIN. 7.3 g/dL (12.0-16.0); LYMPHOCYTES % 14.1 % (20.0-50.0); MEAN CORPUSCULAR HEMOGLOBIN 27.5 pg (28.0-32.0); MEAN CORPUSCULAR VOLUME 80.6 fL (81.0-99.0); MEAN PLATELET VOLUME 8.9 fl (7.4-10.4); MONOCYTES % 8.4 % (2.0-8.0); NEUTROPHILS % 71.3 % (40.0-76.0); PLATELET 346 x1000/uL (130-400); RED BLOOD CELL COUNT 2.65 mill/uL (4.2-5.4); RED CELL DISTRIBUTION WIDTH 18.8 % (11.6-14.6)
[2017-02-22] MEDS: MULTIVITAMINS,THER W-MINERALS TABLET NG SCH ×2 (09:00→09:27)
[2017-02-22] MEDS: FOLIC ACID 1MG TABLET NG SCH ×2 (09:00→09:27)
[2017-02-22] MEDS: THIAMINE HCL 100MG TABLET NG SCH ×2 (09:00→09:27)
[2017-02-22] MEDS: PANTOPRAZOLE SODIUM 40 MG/VIAL IV SCH ×2 (09:26→20:40)
[2017-02-22] MEDS: ACETAMINOPHEN 650MG SUPP PR PRN ×2 (09:27→19:02)
[2017-02-22] MEDS: LINEZOLID 600 MG PREMIX 300 ML IV SCH ×2 (09:28→23:05)
[2017-02-22] MEDS: TOTAL PARENTERAL NUTRITION 1,000 ML IV SCH ×2 (09:30→22:07)
[2017-02-22] MEDS: CALCITRIOL 1MCG/ML AMP IV SCH (09:31)
[2017-02-22] MEDS: MICAFUNGIN 100 MG in SODIUM CHLORIDE 0.9% 100 ML IV SCH (11:16)
[2017-02-22] MEDS: NOREPINEPHRINE 16 MG in DEXT 5% WATER 234 ML IV PRN (12:57)
[2017-02-23] VITALS (100 sets, daily range): BP systolic 79–138; BP diastolic 33–79
[2017-02-23] MEDS: BLOOD SUGAR DIAGNOSTIC STRIP TEST SCH ×4 (00:13→18:49)
[2017-02-23] MEDS: IPRATROPIUM/ALBUTEROL 0.5-3(2.5)MG/3ML NEB HHN SCH ×6 (00:21→21:04)
[2017-02-23] MEDS: INSULIN LISPRO (HIGH DOSE) 100 UNITS/ML SUBCUT SCH ×4 (00:25→18:51)
[2017-02-23] MEDS: METOCLOPRAMIDE HCL 10MG/2ML VIAL IV SCH ×4 (00:26→18:49)
[2017-02-23] MEDS: FENTANYL CITRATE/PF 500 MCG in SODIUM CHLORIDE 0.9% 40 ML IV PRN ×3 (01:05→21:28)
[2017-02-23] MEDS: MIDAZOLAM HCL 50 MG in DEXTROSE 5% WATER 40 ML IV PRN ×2 (02:06→21:29)
[2017-02-23 05:19] LABS: BASOPHILS % 2.7 % (0.0-2.0); EOSINOPHILS % 4.3 % (0.0-5.0); HEMATOCRIT. 23.2 % (36.0-48.0); HEMOGLOBIN. 7.9 g/dL (12.0-16.0); LYMPHOCYTES % 20.9 % (20.0-50.0); MEAN CORPUSCULAR HEMOGLOBIN 27.6 pg (28.0-32.0); MEAN CORPUSCULAR VOLUME 81.2 fL (81.0-99.0); MEAN PLATELET VOLUME 8.7 fl (7.4-10.4); MONOCYTES % 8.9 % (2.0-8.0); NEUTROPHILS % 63.2 % (40.0-76.0); PLATELET 266 x1000/uL (130-400); RED BLOOD CELL COUNT 2.85 mill/uL (4.2-5.4); RED CELL DISTRIBUTION WIDTH 18.5 % (11.6-14.6)
[2017-02-23 05:36] LABS: CARBON DIOXIDE 22 mEq/L (21-32); CHLORIDE 108 mEq/L (98-107); PHOSPHORUS 1.9 mg/dL (2.5-4.9)
[2017-02-23] MEDS: SODIUM CHLORIDE 0.9% INJ 3ML FLUSH IVF SCH ×3 (05:44→22:07)
[2017-02-23] MEDS: MEROPENEM 1,000 MG in SODIUM CHLORIDE 0.9% 100 ML IV SCH ×3 (06:36→22:17)
[2017-02-23 07:12] LABS: BG BASE EXCESS 1.1 mmol/L (-2.0-2.0); BG CARBOXYHEMOGLOBIN 0.4 % (0.5-1.5); BG DEOXYHEMOGLOBIN 2.5 % (0.0-5.0); BG HCO3 ACT 24.1 mmol/L (22.0-26.0); BG METHEMOGLOBIN 0.3 % (0.0-1.5); BG OXYGEN SATURATION 97.5 % (92.0-98.5); BG OXYHEMOGLOBIN 96.8 % (94.0-97.0); BG PCO2 31.3 mmHg (35.0-45.0); BG PH 7.504 (7.350-7.450); BG PO2 101.8 mmHg (75.0-100.0); BG SAMPLE SITE RIGHT RADIAL; BG TIDAL VOLUME(mL) 550 mL; BG TOTAL HEMOGLOBIN 7.7 g/dL (12.0-18.0); BG VENT MODE VENT - A/C; BG VENT RATE 12 set
[2017-02-23] MEDS ORDERED: MAGNESIUM 2 G PREMIX 50 ML IV SCH (08:00)
[2017-02-23] MEDS: MULTIVITAMINS,THER W-MINERALS TABLET NG SCH (08:05)
[2017-02-23] MEDS: THIAMINE HCL 100MG TABLET NG SCH (08:05)
[2017-02-23] MEDS: FOLIC ACID 1MG TABLET NG SCH (08:05)
[2017-02-23] MEDS: PANTOPRAZOLE SODIUM 40 MG/VIAL IV SCH ×2 (08:23→20:03)
[2017-02-23] MEDS: LINEZOLID 600 MG PREMIX 300 ML IV SCH ×2 (10:08→22:40)
[2017-02-23] MEDS: TOTAL PARENTERAL NUTRITION 1,000 ML IV SCH (10:20)
[2017-02-23] MEDS: MICAFUNGIN 100 MG in SODIUM CHLORIDE 0.9% 100 ML IV SCH (11:13)
[2017-02-23] MEDS: ACETAMINOPHEN 650MG SUPP PR PRN (11:50)
[2017-02-23] MEDS ORDERED: TOTAL PARENTERAL NUTRITION 1,000 ML IV SCH (21:00)
[2017-02-24] VITALS (79 sets, daily range): BP systolic 58–168; BP diastolic 33–122
[2017-02-24] MEDS: BLOOD SUGAR DIAGNOSTIC STRIP TEST SCH ×3 (00:32→12:00)
[2017-02-24] MEDS: METOCLOPRAMIDE HCL 10MG/2ML VIAL IV SCH ×3 (00:40→12:00)
[2017-02-24] MEDS: INSULIN LISPRO (HIGH DOSE) 100 UNITS/ML SUBCUT SCH ×3 (00:41→12:00)
[2017-02-24] MEDS: IPRATROPIUM/ALBUTEROL 0.5-3(2.5)MG/3ML NEB HHN SCH ×3 (00:49→09:03)
[2017-02-24] MEDS: NOREPINEPHRINE 16 MG in DEXT 5% WATER 234 ML IV PRN (05:08)
[2017-02-24 05:26] LABS: BASOPHILS % 3.6 % (0.0-2.0); EOSINOPHILS % 5.6 % (0.0-5.0); HEMATOCRIT. 26.5 % (36.0-48.0); LYMPHOCYTES % 19.3 % (20.0-50.0); MEAN CORPUSCULAR HEMOGLOBIN 27.2 pg (28.0-32.0); MEAN CORPUSCULAR VOLUME 80.5 fL (81.0-99.0); MEAN PLATELET VOLUME 8.9 fl (7.4-10.4); NEUTROPHILS % 59.5 % (40.0-76.0); PLATELET 327 x1000/uL (130-400); RED BLOOD CELL COUNT 3.29 mill/uL (4.2-5.4); RED CELL DISTRIBUTION WIDTH 18.4 % (11.6-14.6)
[2017-02-24 05:28] LABS: CARBON DIOXIDE 26 mEq/L (21-32); CHLORIDE 105 mEq/L (98-107); PHOSPHORUS 2.4 mg/dL (2.5-4.9)
[2017-02-24] MEDS: SODIUM CHLORIDE 0.9% INJ 3ML FLUSH IVF SCH ×2 (05:28→14:00)
[2017-02-24 05:33] LABS: INR 1.1; PARTIAL THROMBOPLASTIN TIME 33.7 sec (24.0-34.0); PROTHROMBIN TIME 11.7 sec
[2017-02-24] MEDS: MEROPENEM 1,000 MG in SODIUM CHLORIDE 0.9% 100 ML IV SCH (06:48)
[2017-02-24 07:42] LABS: PREALBUMIN 3.5 mg/dL (20.0-40.0)
[2017-02-24] MEDS: FOLIC ACID 1MG TABLET NG SCH (08:25)
[2017-02-24] MEDS: THIAMINE HCL 100MG TABLET NG SCH (08:25)
[2017-02-24] MEDS: MULTIVITAMINS,THER W-MINERALS TABLET NG SCH (08:25)
[2017-02-24] MEDS: PANTOPRAZOLE SODIUM 40 MG/VIAL IV SCH (08:27)
[2017-02-24] MEDS: ACETAMINOPHEN 650MG SUPP PR PRN (08:28)
[2017-02-24] MEDS ORDERED: PHYTONADIONE 10MG/ML AMP SUBCUT SCH (09:00)
[2017-02-24] MEDS: MORPHINE SULFATE 100 MG in DEXT 5% WATER 90 ML IV PRN ×3 (09:21→20:36)
[2017-02-25] MEDS ORDERED: FAT EMULSIONS 500 ML IV SCH (09:00)
== END 2017-02-24 21:20 | disposition expired | DRG 720 ==
LOC: ER 20:03 → 8WST 02-09 01:05 → MICUSO 02-11 21:15 → 6EST 02-24 18:12
PROVIDERS: ADMIT Family Medicine; ATTEND Family Medicine
PROC: 02HV33Z Insertion of Infusion Device into Superior Vena Cava, Percutaneous Approach (ICD-10-PCS; 2017-02-11)
PROC: B5181ZA Fluoroscopy of Superior Vena Cava using Low Osmolar Contrast, Guidance (ICD-10-PCS; 2017-02-11)
PROC: B548ZZA Ultrasonography of Superior Vena Cava, Guidance (ICD-10-PCS; 2017-02-11)
PROC: 5A09357 Assistance with Respiratory Ventilation, Less than 24 Consecutive Hours, Continuous Positive Airway Pressure (ICD-10-PCS; 2017-02-11)
PROC: 5A1955Z Respiratory Ventilation, Greater than 96 Consecutive Hours (ICD-10-PCS; principal; 2017-02-12)
PROC: 0BH17EZ Insertion of Endotracheal Airway into Trachea, Via Natural or Artificial Opening (ICD-10-PCS; 2017-02-12)
PROC: 0W9930Z Drainage of Right Pleural Cavity with Drainage Device, Percutaneous Approach (ICD-10-PCS; 2017-02-14)
PROC: 30233N1 Transfusion of Nonautologous Red Blood Cells into Peripheral Vein, Percutaneous Approach (ICD-10-PCS; 2017-02-15)
PROC: 05H933Z Insertion of Infusion Device into Right Brachial Vein, Percutaneous Approach (ICD-10-PCS; 2017-02-19)
PROC: B54MZZA Ultrasonography of Right Upper Extremity Veins, Guidance (ICD-10-PCS; 2017-02-19)
PROC: 0DJ08ZZ Inspection of Upper Intestinal Tract, Via Natural or Artificial Opening Endoscopic (ICD-10-PCS; 2017-02-20)
DX: A41.9 Sepsis, unspecified organism (principal); N17.0 Acute kidney failure with tubular necrosis; J96.01 Acute respiratory failure with hypoxia; B37.1 Pulmonary candidiasis; J86.9 Pyothorax without fistula; J90 Pleural effusion, not elsewhere classified; R65.21 Severe sepsis with septic shock; K22.3 Perforation of esophagus; G93.41 Metabolic encephalopathy; J18.9 Pneumonia, unspecified organism; E43 Unspecified severe protein-calorie malnutrition; N18.3 Chronic kidney disease, stage 3 (moderate); E87.2 Acidosis; M62.82 Rhabdomyolysis; E87.1 Hypo-osmolality and hyponatremia; E83.52 Hypercalcemia; K57.90 Diverticulosis of intestine, part unspecified, without perforation or abscess without bleeding; E87.6 Hypokalemia; N39.0 Urinary tract infection, site not specified; B96.89 Other specified bacterial agents as the cause of diseases classified elsewhere; D64.9 Anemia, unspecified; E16.2 Hypoglycemia, unspecified; E66.01 Morbid (severe) obesity due to excess calories; E78.5 Hyperlipidemia, unspecified; E83.39 Other disorders of phosphorus metabolism; E83.42 Hypomagnesemia; E83.51 Hypocalcemia; E87.70 Fluid overload, unspecified; I25.10 Atherosclerotic heart disease of native coronary artery without angina pectoris; I71.4 Abdominal aortic aneurysm, without rupture; I73.9 Peripheral vascular disease, unspecified; J45.909 Unspecified asthma, uncomplicated; J98.11 Atelectasis; K21.9 Gastro-esophageal reflux disease without esophagitis; K29.60 Other gastritis without bleeding; K44.9 Diaphragmatic hernia without obstruction or gangrene; K76.0 Fatty (change of) liver, not elsewhere classified; M16.0 Bilateral primary osteoarthritis of hip; N27.0 Small kidney, unilateral; Z51.5 Encounter for palliative care; Z66 Do not resuscitate; W06.XXXA Fall from bed, initial encounter; I13.10 Hypertensive heart and chronic kidney disease without heart failure, with stage 1 through stage 4 chronic kidney disease, or unspecified chronic kidney disease; F10.10 Alcohol abuse, uncomplicated; R00.0 Tachycardia, unspecified; K22.10 Ulcer of esophagus without bleeding; R73.9 Hyperglycemia, unspecified; R74.0 Nonspecific elevation of levels of transaminase and lactic acid dehydrogenase [LDH]; Z68.37 Body mass index [BMI] 37.0-37.9, adult; I25.2 Old myocardial infarction; Z95.1 Presence of aortocoronary bypass graft; Z95.5 Presence of coronary angioplasty implant and graft; Y93.89 Activity, other specified; Y92.098 Other place in other non-institutional residence as the place of occurrence of the external cause; Y99.8 Other external cause status; Z87.440 Personal history of urinary (tract) infections; Z88.6 Allergy status to analgesic agent; Z89.511 Acquired absence of right leg below knee; Z99.11 Dependence on respirator [ventilator] status; T38.0X5A Adverse effect of glucocorticoids and synthetic analogues, initial encounter
CPT/HCPCS: 31500; 36415; 36569; 36600; 51702; 70450; 70551; 71010; 71250; 73562; 76705; 76770; 76937; 77001; 78580; 80048; 80053; 80061; 80076; 80202; 80305; 80307; 80329; 81001; 82040; 82043; 82140; 82164; 82248; 82270; 82306; 82330; 82375; 82550; 82553; 82570; 82652; 82784; 82805; 82945; 82962; 83036; 83605; 83615; 83690; 83735; 83880; 83883; 83935; 83970; 84100; 84132; 84134; 84155; 84157; 84165; 84300; 84439; 84443; 84478; 84484; 85014; 85018; 85025; 85379; 85610; 85730; 86334; 86635; 86803; 86850; 86870; 86900; 86920; 87040; 87070; 87077; 87086; 87106; 87186; 87205; 87340; 89050; 92610; 93005; 93306; 93970; 93971; 94002; 94003; 94640; 94660; 96360; 96372; 97162; 99285; A4216; A6261; C1725; C1893; C9113; G0482; J0636; J0692; J0696; J1450; J1630; J1650; J1815; J2020; J2060; J2185; J2248; J2250; J2270; J2370; J2430; J2704; J2765; J2930; J3010; J3370; J3430; J3475; J3480; J3490; J7030; J7040; J7050; J7060; J7070; J7120; J7620; J7626; P9016; P9047; A4315